=== PATIENT | female | born 1975 | race Caucasian/White ===

== ENCOUNTER 2022-08-20 12:05 | Emergency (ER) | payer SELFPAY ==
[~2022-08-20] VITALS: Ht 162.6 cm; Wt 70.0 kg
[2022-08-20 12:24] VITALS: BP 117/66
[2022-08-20 17:21] LABS: CLARITY URINE CLEAR (CLEAR); COLOR URINE YELLOW (YELLOW); KETONES URINE NEGATIVE (NEGATIVE); LEUKOCYTE ESTERASE URINE NEGATIVE (NEGATIVE); NITRITE URINE NEGATIVE (NEGATIVE); OCCULT BLOOD URINE NEGATIVE (NEGATIVE); PROTEIN URINE NEGATIVE (NEGATIVE); SPECIFIC GRAVITY URINE 1.007 (1.005-1.030); UROBILINOGEN URINE 0.2 E.U./dL (0.2-1.0)
[2022-08-20] MEDS ORDERED: PHEN95TA25 MT (17:44)
== END 2022-08-20 18:33 | disposition home or self-care (01) ==
LOC: ER 12:05
DX: R30.0 Dysuria (principal); R39.15 Urgency of urination
CPT/HCPCS: 81003; 99283